=== PATIENT | female | born 1945 | race Caucasian/White ===

== ENCOUNTER 2019-11-10 08:45 | Day surgery (SDC) | payer MEDICARE ==
[2019-11-08 14:42] LABS: EOSINOPHILS # (AUTO) 0.2 X10'3 (0-0.9); EOSINOPHILS % (AUTO) 4.9 % (0-6); HEMOGLOBIN 12.7 g/dl (12.0-16.0); LYMPHOCYTES # (AUTO) 1.3 X10'3 (1.1-4.8); LYMPHOCYTES % (AUTO) 27.2 % (21-51); MEAN CORPUSCULAR HEMOGLOBIN 31.2 PG (27.0-31.0); MEAN CORPUSCULAR HGB CONC 33.5 g/dL (33.0-36.5); MEAN CORPUSCULAR VOLUME 93.2 FL (78-98); MEAN PLATELET VOLUME 8.2 FL (7.4-10.4); MONOCYTES # (AUTO) 0.3 X10'3 (0-0.9); MONOCYTES % (AUTO) 7.3 % (2-12); NEUTROPHILS # (AUTO) 2.8 X10'3 (1.8-7.7); NEUTROPHILS % (AUTO) 59.6 % (42-75); PLATELET COUNT 278 X10'3 (140-440); RED BLOOD COUNT 4.08 X10'6 (4.20-5.60); RED CELL DISTRIBUTION WIDTH 13.7 % (11.5-14.5); WHITE BLOOD COUNT 4.7 X10'3 (4.5-11.0)
[2019-11-08 14:57] LABS: ALANINE AMINOTRANSFERASE 29 U/L (12-78); ALBUMIN 3.5 G/DL (3.4-5.0); ALBUMIN/GLOBULIN RATIO 1.1 (1.1-1.5); ALKALINE PHOSPHATASE 92 IU/L (46-116); ANION GAP 6 (8-16); ASPARTATE AMINO TRANSFERASE 17 U/L (10-37); BILIRUBIN,TOTAL 0.2 MG/DL (0.1-1.0); BLOOD UREA NITROGEN 15 MG/DL (7-18); BUN/CREATININE RATIO 16.1 (6.6-38.0); CALCIUM 8.8 MG/DL (8.5-10.1); CHLORIDE 108 MMOL/L (99-107); CREATININE 0.93 MG/DL (0.40-0.90); GLUCOSE 97 MG/DL (70-104); POTASSIUM 3.8 MMOL/L (3.5-5.1); SODIUM 142 MMOL/L (135-145); TOTAL CARBON DIOXIDE 27.9 MMOL/L (24-32); TOTAL PROTEIN 6.7 G/DL (6.4-8.2); eGFR 59 ML/MIN
[2019-11-08 15:14] LABS: PARTIAL THROMBOPLASTIN TIME 30 SECONDS (22-32)
[2019-11-09 12:31] LABS: TROPONIN I < 0.04 NG/ML (0.0-0.05)
[2019-11-10] VITALS (10 sets, daily range): BP systolic 114–129; BP diastolic 45–85
[~2019-11-10] VITALS: Ht 157.5 cm; Wt 50.2 kg
[~2019-11-10 08:45] MED LIST: ASPI81TA52 PO; CHOL10002 PO; CITA40TA17 PO; EST1T PO; LEVO75TA7 PO; NABU500T2 PO; UBID30CA11 PO
[2019-11-10] MEDS ORDERED: normal saline 1,000 ML IV SCH (09:15)
[2019-11-10] MEDS ORDERED: nitroGLYCERIN 0.4mg SUBLingual tab SL PRN ×2 (09:15→15:10)
[2019-11-10] MEDS ORDERED: LORazepam 0.5 MG tablet PO PRN (09:15)
[2019-11-10] MEDS ORDERED: diphenhydrAMINE 25mg capsule PO PRN (09:15)
[2019-11-10] MEDS ORDERED: HYDR-3964 PO (09:22)
[2019-11-10] MEDS ORDERED: MULT-1141 PO (09:22)
[2019-11-10] MEDS ORDERED: LEVO50TA66 PO (09:22)
[2019-11-10] MEDS ORDERED: LIDOcaine 1% (10mg/ml)w/preservative injection 20ml MDV ONE (13:51)
[2019-11-10] MEDS ORDERED: fentaNYL/PF 50MCG/1 ML 2ML syringe ONE (13:51)
[2019-11-10] MEDS ORDERED: midazolam 2 mg/2 ml injection ONE (13:51)
[2019-11-10] MEDS ORDERED: iohexol 350 MG/ML 50ML vial IV ONE (13:52)
[2019-11-10] MEDS ORDERED: iohexol 350MG/ML 100ml bottle IV ONE (13:52)
[2019-11-10] MEDS ORDERED: nitroGLYCERIN-Tridil 50MG/D5W 250 ML IV ONE (14:29)
[2019-11-10] MEDS ORDERED: OXAZEpam 15mg capsule PO PRN (15:10)
[2019-11-10] MEDS ORDERED: proCHLORperazine 10 MG/2 ml inj IV PRN (15:10)
[2019-11-10] MEDS ORDERED: ondansetron/PF 4mg/2ml inj IV PRN (15:10)
[2019-11-10] MEDS ORDERED: acetaminophen 325mg tablet PO PRN (15:10)
== END 2019-11-10 20:00 | disposition home or self-care (01) ==
LOC: SSTAY O 08:45
PROVIDERS: ATTEND Internal Medicine Cardiovascular Disease
DX: R94.39 Abnormal result of other cardiovascular function study (principal); I25.10 Atherosclerotic heart disease of native coronary artery without angina pectoris; E78.49 Other hyperlipidemia; R06.09 Other forms of dyspnea; J44.9 Chronic obstructive pulmonary disease, unspecified; N18.9 Chronic kidney disease, unspecified; Z98.890 Other specified postprocedural states; Z87.891 Personal history of nicotine dependence
CPT/HCPCS: 36415; 71046; 80053; 83880; 84439; 84443; 84484; 85025; 85610; 85730; 93005; 93458; 99152; 99153; C1760; C1769; J1644; J2001; J2250; J3010; J7030; Q0163; Q9967; A4620; A6258; J3490

== ENCOUNTER 2023-11-04 22:09 | Emergency (ER) | payer MEDICARE ==
[~2023-11-04] VITALS: Ht 157.5 cm; Wt 52.0 kg
[~2023-11-04 22:09] MED LIST changes: -CHOL10002 PO; +HYDR-3964 PO; +LEVO50TA66 PO; -LEVO75TA7 PO; +MULT-1141 PO; -NABU500T2 PO
[2023-11-04] MEDS ORDERED: HYDR-3965 PO (22:36)
[2023-11-04 23:49] LABS: BASOPHILS # (AUTO) 0.1 X10'3 (0-0.2); BASOPHILS % (AUTO) 0.9 % (0-1); EOSINOPHILS # (AUTO) 0.2 X10'3 (0-0.9); EOSINOPHILS % (AUTO) 2.8 % (0-6); HEMATOCRIT 38.7 % (35.0-45.0); HEMOGLOBIN 12.8 g/dl (12.0-16.0); LYMPHOCYTES # (AUTO) 1.1 X10'3 (1.1-4.8); LYMPHOCYTES % (AUTO) 15.7 % (21-51); MEAN CORPUSCULAR HEMOGLOBIN 30.4 PG (27.0-31.0); MEAN CORPUSCULAR HGB CONC 33.1 g/dL (33.0-36.5); MEAN PLATELET VOLUME 7.6 FL (7.4-10.4); MONOCYTES # (AUTO) 0.6 X10'3 (0-0.9); NEUTROPHILS # (AUTO) 5.3 X10'3 (1.8-7.7); NEUTROPHILS % (AUTO) 72.6 % (42-75); PLATELET COUNT 264 X10'3 (140-440); RED CELL DISTRIBUTION WIDTH 13.4 % (11.5-14.5); WHITE BLOOD COUNT 7.3 X10'3 (4.5-11.0)
[2023-11-05 00:03] LABS: APTT 26 SECONDS (22-32); PROTHROMBIN TIME 10.8 SECONDS (9.0-12.0)
[2023-11-05 00:04] LABS: ALANINE AMINOTRANSFERASE 34 U/L (12-78); ALBUMIN 3.4 G/DL (3.4-5.0); ALBUMIN/GLOBULIN RATIO 0.9 (1.1-1.5); ALKALINE PHOSPHATASE 113 IU/L (46-116); ANION GAP 8 (8-16); ASPARTATE AMINO TRANSFERASE 22 U/L (10-37); BILIRUBIN,TOTAL 0.3 MG/DL (0.1-1.0); BLOOD UREA NITROGEN 17 MG/DL (7-18); BUN/CREATININE RATIO 24.3 (10.0-20.0); CALCIUM 9.2 MG/DL (8.5-10.1); CHLORIDE 105 MMOL/L (99-107); GLUCOSE 110 MG/DL (70-104); SODIUM 141 MMOL/L (135-145); TOTAL CARBON DIOXIDE 28.3 MMOL/L (24-32); TOTAL PROTEIN 7.3 G/DL (6.4-8.2); eCRCL 53 ML/MIN; eGFR 81 ML/MIN
[2023-11-05] MEDS: HYDROcodone/acetaminophen 10/325mg tab PO ONE (00:28)
[2023-11-05] MEDS: ondansetron 4mg rapidly disintigrating tab PO ONE (00:29)
[2023-11-05] MEDS ORDERED: LEVO112T39 (00:32)
[2023-11-05 06:29] VITALS: TEMP 98.4
[2023-11-05 08:12] VITALS: BP 103/59; PULSE 60; RESP 13; O2SAT 96
== END 2023-11-05 08:40 | disposition home or self-care (01) ==
LOC: ER 22:09
DX: S05.42XA Penetrating wound of orbit with or without foreign body, left eye, initial encounter (principal); R79.1 Abnormal coagulation profile; Z79.82 Long term (current) use of aspirin; Z79.899 Other long term (current) drug therapy; W19.XXXA Unspecified fall, initial encounter; Y93.89 Activity, other specified; Y92.89 Other specified places as the place of occurrence of the external cause; Y99.8 Other external cause status
CPT/HCPCS: 12011; 36415; 70450; 70486; 80053; 85025; 85610; 85730; 99285